=== PATIENT | female | born 1965 | race Caucasian/White ===

== ENCOUNTER 2018-03-10 06:49 | Day surgery (SDC) | payer OTHER ==
[~2018-03-10 06:49] MED LIST: CEFAZOLIN 2 GM/50 ML (PMX) 50 ML IVPB; SOD CHLORIDE 0.9% 1,000 ML IV
[2018-03-10 07:20] LABS: ADD MAN DIFF? NO
[2018-03-10 07:22] LABS: WHITE BLOOD COUNT 6.6 10^3/ul (4.8-10.8)
[2018-03-10 07:22] LABS: BASOPHILS % 0.6 % (0.0-2.0); EOSINOPHILS # 0.2 10^3/ul (0.0-0.5); EOSINOPHILS % 2.9 % (0.0-7.0); HEMATOCRIT 37.1 % (37.0-47.0); HEMOGLOBIN 11.8 g/dl (12.0-16.0); LYMPHOCYTES # 2.4 10^3/ul (0.8-2.9); MEAN CORPUSCULAR HEMOGLOBIN 25.1 pg (29.0-33.0); MEAN CORPUSCULAR HGB CONC 31.8 g/dl (32.0-37.0); MEAN CORPUSCULAR VOLUME 78.9 fl (82.0-101.0); MEAN PLATELET VOLUME 9.6 fl (7.4-10.4); MONOCYTE # 0.6 10^3/ul (0.3-0.9); MONOCYTES % 8.5 % (0.0-11.0); NEUTROPHIL # 3.4 10^3/ul (1.6-7.5); NEUTROPHILS % 51.5 % (39.0-77.0); PLATELET COUNT 297 10^3/UL (140-415); RED CELL DISTRIBUTION WIDTH 15.9 % (11.5-14.5)
[2018-03-10 07:39] LABS: ALANINE AMINOTRANSFERASE 103 IU/L (13-69); ALBUMIN 4.4 g/dl (3.3-4.9); ALBUMIN/GLOBULIN RATIO 1.25; ALKALINE PHOSPHATASE 134 IU/L (42-121); ANION GAP 15 (8-16); ASPARTATE AMINO TRANSFERASE 122 IU/L (15-46); BILIRUBIN,INDIRECT 0.3 mg/dl (0-1.1); BILIRUBIN,TOTAL 0.3 mg/dl (0.2-1.3); BLOOD UREA NITROGEN 10 mg/dl (7-20); CALCIUM 9.6 mg/dl (8.4-10.2); CARBON DIOXIDE 27 mmol/L (21-31); CHLORIDE 105 mmol/L (97-110); CREATININE 0.42 mg/dl (0.44-1.00); GLUCOSE 265 mg/dl (70-220); SODIUM 143 mmol/L (135-144); TOTAL PROTEIN 7.9 g/dl (6.1-8.1)
[2018-03-10] MEDS: INSULIN ASPART [NOVOLOG] 3 ML PEN SC ×2 (07:40→08:07)
[2018-03-10 07:43] LABS: INR 0.91; PROTIME 12.3 Sec (11.9-14.9)
[2018-03-10 07:44] LABS: PARTIAL THROMBOPLASTIN TIME 30.1 Sec (25.0-35.0)
[2018-03-10] MEDS ORDERED: OXYCODONE/ACETAMINOPHEN (5/325) TAB PO ×2 (08:00)
[2018-03-10] MEDS ORDERED: HYDROmorphONE 1 MG/5 ML IV SYRINGE IV (08:00)
[2018-03-10] MEDS ORDERED: DIPHENHYDRAMINE 50 MG INJ IV (08:00)
[2018-03-10] MEDS ORDERED: MIDAZOLAM 1 MG/ML 2 ML INJ IV (08:00)
[2018-03-10] MEDS ORDERED: ONDANSETRON 4 MG INJ IV (08:00)
[2018-03-10] MEDS ORDERED: EPHEDrine SULFATE 50 MG/5 ML SYG IV (08:00)
[2018-03-10] MEDS ORDERED: hydrALAzine 20 MG INJ IV (08:00)
[2018-03-10] MEDS ORDERED: LIDOCAINE 2% (SDV) 5 ML INJ (08:04)
[2018-03-10] MEDS ORDERED: GLYCOPYRROLATE 0.4 MG INJ ×2 (08:04→08:45)
[2018-03-10] MEDS ORDERED: NEOSTIGMINE 3 MG/3 ML SYRINGE (08:04)
[2018-03-10] MEDS ORDERED: ROCURONIUM 50 MG INJ (08:04)
[2018-03-10] MEDS ORDERED: MEPERIDINE 100 MG INJ (08:04)
[2018-03-10] MEDS ORDERED: SUCCINYLCHOLINE CHLORIDE 100 MG/5 ML SYG IV (08:04)
[2018-03-10] MEDS ORDERED: PROPOFOL 20 ML (08:04)
[2018-03-10] MEDS ORDERED: ONDANSETRON 4 MG INJ (08:07)
[2018-03-10] MEDS ORDERED: CEFAZOLIN 1 GM INJ (08:07)
[2018-03-10] MEDS ORDERED: METOCLOPRAMIDE 10 MG INJ (08:08)
[2018-03-10] MEDS ORDERED: DEXAMETHASONE 4 MG/ML 1 ML INJ (08:08)
[2018-03-10] MEDS: BUPIVACAINE 0.25% (MPF) 30 ML INJ (08:42)
[2018-03-10] MEDS: MEPERIDINE 25 MG INJ IV (09:23)
[2018-03-10] MEDS: HYDROmorphONE 1 MG/5 ML IV SYRINGE IV ×3 (09:33→09:50)
[2018-03-10] MEDS: HYDROCODONE/APAP (5/325) TAB PO (09:47)
[2018-03-10] MEDS: LABETALOL HCL 20MG INJ IV (09:55)
== END 2018-03-10 12:15 | disposition home or self-care (01) ==
LOC: SDS 06:49
DX: K80.20 Calculus of gallbladder without cholecystitis without obstruction (principal); E11.9 Type 2 diabetes mellitus without complications; I10 Essential (primary) hypertension; E03.9 Hypothyroidism, unspecified
CPT/HCPCS: 47562; 71045; 80053; 82962; 85025; 85610; 85730; 88304; 93005